=== PATIENT | male | born 1975 | race American Indian/Alaskan Native ===

== ENCOUNTER 2021-10-27 00:31 | Emergency (ER) | payer SELFPAY ==
[2021-10-27 00:50] VITALS: BP 142/92
[2021-10-27] MEDS ORDERED: ACETAMINOPHEN 500 MG TAB PO ONE (01:40)
[2021-10-27] MEDS ORDERED: IBUPROFEN 600 MG TAB PO ONE (01:40)
[2021-10-27] MEDS ORDERED: diazePAM 5 MG TAB PO ONE ×2 (01:40)
--- NOTE | 2021-10-27 04:25 | Emergency Department Report ---
ED Fall HPI - General Chief Complaint: Fall Stated Complaint: ARM BACK KNEE GROIN PAIN Source: patient Mode of arrival: Ambulatory - History of Present Illness Initial Comments: Patient is a 46-year-old -[place] male with no past medical history who presents to the ED with complaint of acute onset persistent left shoulder pain and mild low back pain after he slipped and fell down landing on his back and left arm 24 hours ago on a white floor at a [place] in [place]. Patient states that the pain has been persistent and worse with ambulation or any active range of motion. Patient denies head or neck injuries, dizziness, syncope, chest pain or shortness of breath, numbness and tingling or weakness of upper and lower extremities bilaterally, change in vision, urinary or bowel incontinence and saddle paresthesia. MD Complaint: fall, other (left shoulder pain) -: Sudden Fall From: standing When Fall Occurred: 24 hours [employer] Fall Witnessed: yes, by family Place Fall Occurred: other (at a casino) Loss of Consciousness: none Prolonged Down Time?: no Symptoms Prior to Fall: none Location: other (left shoulder and arm pain) Location - Extremities: Left: Shoulder (pain), Arm (pain) Severity: moderate Severity scale (0 -10): 6 Quality: sharp, aching Context: tripped/slipped Associated Symptoms: denies. denies: headache, neck pain, numbness, chest paint, shortness of breath, abdominal pain, hematuria, unable to walk, lightheaded, vertigo, confusion - Related Data Previous Rx's Medication Instructions Recorded Last Taken Type Ibuprofen [Motrin] 800 mg PO Q8HR PRN #30 tablet 10/27/21 Unknown Rx methOCARBAMOL [Robaxin TAB] 750 mg PO Q8H PRN #24 tab 10/27/21 Unknown Rx traMADoL [Ultram] 50 mg PO Q6HR PRN #10 tablet 10/27/21 Unknown Rx Allergies Allergy/AdvReac Type Severity Reaction Status Date / Time No Known Allergies Allergy Unverified 10/27/21 00:44 ED Review of Systems ROS: Stated complaint: ARM BACK KNEE GROIN PAIN Other details as noted in HPI Constitutional: denies: chills, fever Eyes: denies: eye pain, eye discharge, vision change ENT: denies: ear pain, throat pain Respiratory: denies: cough, shortness of breath, wheezing Cardiovascular: denies: chest pain, palpitations Endocrine: no symptoms reported Gastrointestinal: denies: abdominal pain, nausea, diarrhea Genitourinary: denies: urgency, dysuria Musculoskeletal: back pain (Mild low back pain), arthralgia (Left shoulder pain), myalgia. denies: joint swelling Skin: denies: rash, lesions Neurological: denies: headache, weakness, paresthesias Psychiatric: denies: anxiety, depression Hematological/Lymphatic: denies: easy bleeding, easy bruising ED Past Medical Hx - Past Medical History Previous Medical History?: No - Surgical History Past Surgical History?: No - Medications Home Medications: Home Medications Medication Instructions Recorded Confirmed Last Taken Type Ibuprofen [Motrin] 800 mg PO Q8HR PRN #30 tablet 10/27/21 Unknown Rx methOCARBAMOL [Robaxin TAB] 750 mg PO Q8H PRN #24 tab 10/27/21 Unknown Rx traMADoL [Ultram] 50 mg PO Q6HR PRN #10 tablet 10/27/21 Unknown Rx ED Physical Exam - General Limitations: No Limitations General appearance: alert, in no apparent distress - Head Head exam: Present: atraumatic, normocephalic, normal inspection - Eye Eye exam: Present: normal appearance, PERRL, EOMI Pupils: Present: normal accommodation - ENT ENT exam: Present: normal exam, normal orophraynx, mucous membranes moist, TM's normal bilaterally, normal external ear exam - Neck Neck exam: Present: normal inspection, full ROM. Absent: tenderness - Respiratory Respiratory exam: Present: normal lung sounds bilaterally. Absent: respiratory distress, wheezes, rales, rhonchi, stridor, chest wall tenderness, accessory muscle use, decreased breath sounds, prolonged expiratory - Cardiovascular Cardiovascular Exam: Present: regular rate, normal rhythm, normal heart sounds. Absent: systolic murmur, diastolic murmur, rubs, gallop - GI/Abdominal GI/Abdominal exam: Present: soft, normal bowel sounds. Absent: tenderness, guarding, rebound, hyperactive bowel sounds, hypoactive bowel sounds - Extremities Exam Extremities exam: Present: normal inspection, full ROM, tenderness (Palpable left shoulder tenderness), normal capillary refill. Absent: calf tenderness - Back Exam Back exam: Present: normal inspection, full ROM, tenderness (Palpable mild lumbosacral paraspinal musculoskeletal tenderness), muscle spasm, paraspinal tenderness. Absent: CVA tenderness (R), CVA tenderness (L), vertebral tendern ess - Neurological Exam Neurological exam: Present: alert, oriented X3, CN II-XII intact, normal gait, reflexes normal - Psychiatric Psychiatric exam: Present: normal affect, normal mood - Skin Skin exam: Present: warm, dry, intact, normal color. Absent: rash ED Course Vital Signs 10/27/21 00:46 Temperature 98.7 F Pulse Rate 97 H Respiratory 18 Rate Blood Pressure 142/92 O2 Sat by Pulse 98 Oximetry ED Medical Decision Making - Radiology Data Radiology results: report reviewed, image reviewed [facility] [address] [place] [address] XRay Report Signed Patient: AUTUMN THOMAS MR#: [id number] 8 : 1975 Acct:[id number] Age/Sex: 46 / M ADM Date: 10/27/21 Loc: ED Attending Dr: Ordering Physician: ELIZABETH VARGHESE Date of Service: 10/27/21 Procedure(s): XR elbow 3+V LT Accession Number(s): [id number] cc: ELIZABETH VARGHESE Fluoro Time In Minutes: LEFT ELBOW 3 VIEWS INDICATION / CLINICAL INFORMATION: Pain - Fall COMPARISON: None available. FINDINGS: BONES / JOINT(S): No acute fracture or subluxation. Mild ossification within the triceps tendon at the insertion upon the olecranon process of the ulna. SOFT TISSUES: No significant abnormality. ADDITIONAL FINDINGS: None. Signer Name: Fred Cruz MD Signed: 10/27/2021 5:21 AM Workstation Name: [id number] Transcribed By: ES Dictated By: Fred Cruz MD Electronically Authenticated By: Fred Cruz MD Signed Date/Time: 10/27/21520 DD/ 9 TD/TT: [facility] [address] [place] [address] XRay Report Signed Patient: AUTMUN THOMAS MR#: [id number] 8 : 1975 Acct:[id number] Age/Sex: 46 / M ADM Date: 10/27/21 Loc: ED Attending Dr: Ordering Physician: ELIZABETH VARGHESE Date of Service: 10/27/21 Procedure(s): XR shoulder 2+V LT Accession Number(s): [id number] cc: ELIZABETH VARGHESE Fluoro Time In Minutes: LEFT SHOULDER 3 VIEWS INDICATION / CLINICAL INFORMATION: fall - pain COMPARISON: None available. FINDINGS: BONES / JOINT(S): No acute fracture or subluxation. No significant arthritis. SOFT TISSUES: No significant abnormality. ADDITIONAL FINDINGS: None. Signer Name: Fred Cruz MD Signed: 10/27/2021 4:35 AM Workstation Name: [id number] Transcribed By: ES Dictated By: Fred Cruz MD Electronically Authenticated By: Fred Cruz MD Signed Date/Time: 10/27/21434 DD/ 3 TD/TT: - Medical Decision Making This is a 46-year-old -[place] male with no past medical history who presents to the ED with complaint of acute onset persistent left shoulder pain and mild low back pain after he slipped and fell down landing on his back and left arm 24 hours ago on a white floor at a [facility] in [place]. Patient states that the pain has been persistent and worse with ambulation or any active range of motion. In the ED, patient is alert and oriented x3 and is not in any distress. Patient was treated for pain in the ED. Left shoulder x-ray showed no acute fractures or subluxations. Based on the physical exam findings and the history, patient symptoms are likely musculoskeletal following the fall 24 hours ago. Patient was therefore discharged home on pain medications and advised to follow-up with his primary care physician in 7 to 10 days for reevaluation. Patient advised return to the ED immediately if symptoms get worse. - Differential Diagnosis Muscle strain; muscle spasm; shoulder sprain; shoulder fracture Critical care attestation.: If time is entered above; I have spent that time in minutes in the direct care of this critically ill patient, excluding procedure time. ED Disposition Clinical Impression: Muscle strain of left upper extremity Qualifiers: Encounter type: initial encounter Qualified Code(s): S46.912A - Strain of unspecified muscle, fascia and tendon at shoulder and upper arm level, left arm, initial encounter Sprain of left shoulder Qualifiers: Encounter type: initial encounter Shoulder sprain type: unspecified sprain Qualified Code(s): S43.402A - Unspecified sprain of left shoulder joint, initial encounter Sprain of left elbow Qualifiers: Encounter type: initial encounter Qualified Code(s): S53.402A - Unspecified sprain of left elbow, initial encounter Disposition: HOME / SELF CARE / HOMELESS Is pt being admited?: No Does the pt Need Aspirin: No Condition: Stable Instructions: Shoulder Sprain, Acute Back Pain, Adult, Muscle Strain, [id number] Additional Instructions: The left shoulder x-ray showed no acute fractures or subluxations. Your injuries are all musculoskeletal following the fall. Therefore take medications with food, drink plenty of fluids and follow-up with your primary care physician in 7 to 10 days for reevaluation. Return to the ED immediately if symptoms get worse Prescriptions: Ibuprofen [Motrin] 800 mg PO Q8HR PRN #30 tablet PRN Reason: Pain , Severe (7-10) methOCARBAMOL [Robaxin TAB] 750 mg PO Q8H PRN #24 tab PRN Reason: Muscle Spasm traMADoL [Ultram] 50 mg PO Q6HR PRN #10 tablet PRN Reason: Pain Referrals: [facility] [Provider Group] - 7-10 days Forms: Work/School Release Form(ED) Time of Disposition: 04:25 Print Language: GAMBIAN
--- NOTE | 2021-10-27 04:39 | XRay Report ---
LEFT SHOULDER 3 VIEWS INDICATION / CLINICAL INFORMATION: fall - pain COMPARISON: None available. FINDINGS: BONES / JOINT(S): No acute fracture or subluxation. No significant arthritis. SOFT TISSUES: No significant abnormality. ADDITIONAL FINDINGS: None. Signer Name: Fred Cruz MD Signed: 10/27/2021 4:35 AM Workstation Name: [id number]
--- NOTE | 2021-10-27 05:26 | XRay Report ---
LEFT ELBOW 3 VIEWS INDICATION / CLINICAL INFORMATION: Pain - Fall COMPARISON: None available. FINDINGS: BONES / JOINT(S): No acute fracture or subluxation. Mild ossification within the triceps tendon at th e insertion upon the olecranon process of the ulna. SOFT TISSUES: No significant abnormality. ADDITIONAL FINDINGS: None. Signer Name: Fred Cruz MD Signed: 10/27/2021 5:21 AM Workstation Name: [id number]
== END 2021-10-27 05:41 | disposition home or self-care (01) ==
LOC: ED 00:31
DX: S46.912A Strain of unspecified muscle, fascia and tendon at shoulder and upper arm level, left arm, initial encounter (principal); S43.402A Unspecified sprain of left shoulder joint, initial encounter; S53.402A Unspecified sprain of left elbow, initial encounter; X58.XXXA Exposure to other specified factors, initial encounter; Y93.89 Activity, other specified; Y92.89 Other specified places as the place of occurrence of the external cause; Y99.8 Other external cause status
CPT/HCPCS: 99283